=== PATIENT | female | born 1995 | race Caucasian/White ===

== ENCOUNTER → 2021-08-14 | Outpatient (CLI) | payer OTHER | LOC: M PLALAB 09:57 | PROVIDERS: ATTEND Obstetrics & Gynecology | DX: Z34.81 Encounter for supervision of other normal pregnancy, first trimester (principal); Z3A.00 Weeks of gestation of pregnancy not specified ==

== ENCOUNTER → 2021-09-07 | Outpatient (CLI) | payer OTHER | LOC: M WHC 13:09 | PROVIDERS: ATTEND Advanced Practice Midwife | DX: Z53.9 Procedure and treatment not carried out, unspecified reason (principal) ==

== ENCOUNTER → 2021-09-08 | Outpatient (CLI) | payer OTHER ==
[2021-09-08 15:31] LABS: BASO % 0.3 % (0.0-1.0); EOS # 0.1 10^3/uL (0.0-0.5); EOS % 0.9 % (0.0-3.0); HEMATOCRIT 37.7 % (36.0-47.0); HEMOGLOBIN 13.2 g/dl (12.0-15.5); LYMPH # 1.7 10^3/uL (1.5-5.0); LYMPH % 18.1 % (24.0-44.0); MEAN CORPUSCULAR VOLUME 94.3 fl (80.0-96.0); MONO # 0.6 10^3/uL (0.0-0.8); MONO % 6.4 % (2.0-8.0); NEUTROPHILS # 6.9 10^3/uL (1.5-8.5); PLATELET COUNT, AUTOMATED 212 10^3/uL (150-450); WHITE BLOOD COUNT 9.3 10^3/uL (4.0-10.0)
[2021-09-08 16:45] LABS: HIV 1&2 SCREEN CENTAUR NEGATIVE (NEGATIVE)
[2021-09-08 16:48] LABS: GC DNA AMPLIFICATION NEGATIVE (NEGATIVE)
== END ==
LOC: M PLALAB 13:51
PROVIDERS: ATTEND Obstetrics & Gynecology
DX: Z34.91 Encounter for supervision of normal pregnancy, unspecified, first trimester (principal)

== ENCOUNTER → 2021-10-08 | Outpatient (CLI) | payer OTHER | LOC: M WHC 11:22 | PROVIDERS: ATTEND Advanced Practice Midwife | DX: Z34.92 Encounter for supervision of normal pregnancy, unspecified, second trimester (principal) ==

== ENCOUNTER → 2021-10-23 | Outpatient (CLI) | payer OTHER | LOC: M WHC 12:07 | PROVIDERS: ATTEND Obstetrics & Gynecology | DX: Z36.2 Encounter for other antenatal screening follow-up (principal) ==

== ENCOUNTER → 2021-11-17 | Outpatient (CLI) | payer OTHER | LOC: M WHC 14:53 | PROVIDERS: ATTEND Advanced Practice Midwife | DX: O44.42 Low lying placenta NOS or without hemorrhage, second trimester (principal) ==

== ENCOUNTER → 2021-12-07 | Outpatient (CLI) | payer OTHER | LOC: M WHC 14:06 | PROVIDERS: ATTEND Advanced Practice Midwife | DX: Z34.92 Encounter for supervision of normal pregnancy, unspecified, second trimester (principal) ==

== ENCOUNTER → 2021-12-14 | Outpatient (CLI) | payer OTHER ==
[2021-12-14 13:40] LABS: HEMATOCRIT 37.5 % (36.0-47.0); HEMOGLOBIN 12.9 g/dl (12.0-15.5); MEAN CORPUSCULAR HEMOGLOBIN 34.2 pg (27.0-33.0); MEAN CORPUSCULAR HGB CONC 34.4 g/dl (32.0-36.5); MEAN CORPUSCULAR VOLUME 99.5 fl (80.0-96.0); PLATELET COUNT, AUTOMATED 203 10^3/uL (150-450); RED BLOOD COUNT 3.77 10^6/uL (4.00-5.40); WHITE BLOOD COUNT 7.8 10^3/uL (4.0-10.0)
[2021-12-14 15:12] LABS: GC DNA AMPLIFICATION NEGATIVE (NEGATIVE)
== END ==
LOC: M PLALAB 10:19
PROVIDERS: ATTEND Advanced Practice Midwife
DX: O44.42 Low lying placenta NOS or without hemorrhage, second trimester (principal); Z3A.00 Weeks of gestation of pregnancy not specified

== ENCOUNTER → 2022-02-09 | Outpatient (REF) | payer OTHER | LOC: M SFHCWAGY 16:58 | PROVIDERS: ATTEND Obstetrics & Gynecology | DX: O09.293 Supervision of pregnancy with other poor reproductive or obstetric history, third trimester (principal) ==

== ENCOUNTER 2022-03-05 06:38 | Inpatient (IN) | payer OTHER ==
[~2022-03-05] VITALS: Ht 157.5 cm; Wt 89.6 kg
[2022-03-05] VITALS (35 sets, daily range): BP systolic 109–159; BP diastolic 56–89
[2022-03-05] MEDS ORDERED: LACTATED RINGER'S 1000 ML IV STA (07:03)
[2022-03-05] MEDS ORDERED: PENICILLIN G POTASSIUM IV 5 MU in D5W MINI-BAG PLUS 100 ML IV STA (07:03)
[2022-03-05] MEDS ORDERED: LR 1,000 ML IV SCH (07:05)
[2022-03-05] MEDS ORDERED: PRENTAB9 PO (07:09)
[2022-03-05] MEDS ORDERED: ceFAZolin SOD 2 GM in IV 1 EA IV ONE ×2 (07:20→16:45)
[2022-03-05 09:31] LABS: HEMATOCRIT 37.8 % (36.0-47.0); HEMOGLOBIN 13.3 g/dl (12.0-15.5); MEAN CORPUSCULAR HEMOGLOBIN 33.7 pg (27.0-33.0); MEAN CORPUSCULAR HGB CONC 35.2 g/dl (32.0-36.5); MEAN CORPUSCULAR VOLUME 95.7 fl (80.0-96.0); PLATELET COUNT, AUTOMATED 188 10^3/uL (150-450); RED BLOOD COUNT 3.95 10^6/uL (4.00-5.40); WHITE BLOOD COUNT 12.7 10^3/uL (4.0-10.0)
[2022-03-05] MEDS ORDERED: NALOXONE INJ 0.4MG/1ML VIAL (J2310 PER 1MG) IV PRN (10:40)
[2022-03-05] MEDS ORDERED: EPIDURAL/PCA KEYS XX PRN (10:40)
[2022-03-05] MEDS ORDERED: ePHEDrine SULFATE 25 MG/5 ML(5MG/ML) SYRINGE IVP PRN (10:40)
[2022-03-05] MEDS ORDERED: diphenhydrAMINE 50MG/ML VIAL (J1200) IV PRN (10:40)
[2022-03-05] MEDS ORDERED: ONDANSETRON 4MG 2ML VIAL IV PRN (10:40)
[2022-03-05] MEDS ORDERED: FENTANYL 2MCG/ML ROPIVACAINE 0.2% IN 0.9% NACL 100ML IVBAG As Ordered ONE (10:40)
[2022-03-05] MEDS ORDERED: LR 500 ML IV PRN (10:40)
[2022-03-05] MEDS ORDERED: FENTANYL/ROPIVACAINE/NACL BAG 100 ML EPIDURAL SCH (10:40)
[2022-03-05] MEDS ORDERED: PENICILLIN G POTASSIUM IV 2.5 MU in IV 1 EA IV SCH (11:05)
[2022-03-05] MEDS ORDERED: OXYTOCIN 30 UNITS IN 0.9% NaCl 500ML IV BAG (J2590) As Ordered ONE (15:08)
[2022-03-05] MEDS ORDERED: ceFAZolin SOD 1 GM in D5W MINI-BAG PLUS 50 ML IV SCH (16:00)
[2022-03-05] MEDS ORDERED: RHOGAM 300 MCG (1500 IU) INJ (J2790) IM SCH (16:45)
[2022-03-05] MEDS ORDERED: METHYLERGONOVINE MALEATE 0.2 MG TAB PO PRN (16:45)
[2022-03-05] MEDS ORDERED: DIBUCAINE 1% OINTMENT 30GM TOP PRN (16:45)
[2022-03-05] MEDS ORDERED: DOCUSATE SODIUM 100MG CAPSULE PO PRN (16:45)
[2022-03-05] MEDS ORDERED: OXYTOCIN DRIP 30 UNITS in IV 1 EA IV SCH ×4 (17:05)
[2022-03-05] MEDS: ACETAMINOPHEN 500 MG TAB PO PRN (17:07)
[2022-03-05] MEDS: IBUPROFEN 600MG TAB PO PRN (22:12)
[2022-03-06] MEDS: ACETAMINOPHEN 500 MG TAB PO PRN (02:03)
[2022-03-06 05:50] VITALS: BP 112/61
[2022-03-06] MEDS: PRENATAL VITAMINS CHEWABLE TABLET PO SCH (08:12)
[2022-03-06] MEDS: IBUPROFEN 600MG TAB PO PRN ×2 (08:14→16:14)
[2022-03-06 18:32] VITALS: BP 122/71
[2022-03-07 06:43] VITALS: BP 101/58
[2022-03-07] MEDS: PRENATAL VITAMINS CHEWABLE TABLET PO SCH (07:57)
[2022-03-07] MEDS: IBUPROFEN 600MG TAB PO PRN ×2 (07:58)
[2022-03-07] MEDS ORDERED: MEASLES,MUMPS,RUBELLA VACCINE INJ (MMR-II) (90707) SC.IMMUN ONE (09:00)
[2022-03-07] MEDS ORDERED: ACET-683 PO (10:20)
[2022-03-07] MEDS ORDERED: COLA100C5 PO (10:20)
[2022-03-07] MEDS ORDERED: IBUP-1022 PO (10:20)
== END 2022-03-07 12:56 | disposition home or self-care (01) | DRG 807 ==
LOC: M LDO 06:38 → M LDI 07:01 → M OBS 18:31
PROVIDERS: ADMIT Specialist; ATTEND Obstetrics & Gynecology
PROC: 10E0XZZ Delivery of Products of Conception, External Approach (ICD-10-PCS; principal; 2022-03-05)
PROC: 0KQM0ZZ Repair Perineum Muscle, Open Approach (ICD-10-PCS; 2022-03-05)
DX: O69.81X0 Labor and delivery complicated by cord around neck, without compression, not applicable or unspecified (principal); Z37.0 Single live birth; Z3A.40 40 weeks gestation of pregnancy; O99.824 Streptococcus B carrier state complicating childbirth; O70.1 Second degree perineal laceration during delivery

== ENCOUNTER → 2022-08-18 | Outpatient (REF) | payer OTHER ==
[~2022-08-18] MED LIST: ACET-683 PO; COLA100C5 PO; IBUP-1022 PO; PRENTAB9 PO
== END ==
LOC: M PLALAB 10:53
PROVIDERS: ATTEND Obstetrics & Gynecology
DX: Z01.419 Encounter for gynecological examination (general) (routine) without abnormal findings (principal)

== ENCOUNTER → 2023-07-27 | Outpatient (CLI) | payer OTHER ==
[~2023-07-27] MED LIST changes: +ISOVUE-370 76% 100ML VIAL ONE
== END ==
LOC: M PLAIMG 14:31
PROVIDERS: ATTEND Orthopaedic Surgery Hand Surgery
DX: M25.831 Other specified joint disorders, right wrist (principal)